=== PATIENT | female | born 1980 | race Caucasian/White ===

== ENCOUNTER 2024-10-30 14:34 | Observation (INO) ==
--- NOTE | 2024-10-30 15:10 | Emergency Department Note ---
HPI - General Adult General Chief complaint: Back Pain/Injury Stated complaint: BACK PAIN Time Seen by Provider: 10/30/24 14:54 Source: patient Mode of arrival: walk-in Limitations: no limitations History of Present Illness HPI narrative: This is a 44 year old female patient that presents to the ER with c/o left flank pain, lower back pain today, cough and congestion for the past few days and not getting any better. Patient states the back pain is worse with movement. Patient denies any chest pain, SOB, back pain, abdominal pain, numbness, tingling, weakness, or loss of bowel or bladder. Patient states her cough has not been productive at all Location: Reports back Radiation: Reports flank (left) Severity: mild Quality: Reports aching Pain Consistency: Reports constant Relieving factors: Reports none Exacerbating factors: Reports movement Associated symptoms: Reports cough Treatments prior to arrival: Reports none Related Data Previous Rx's Medication Instructions Recorded ketorolac 10 mg tablet 10 mg PO Q6H PRN pain #20 tabs 03/16/24 ondansetron 4 mg disintegrating 4 mg PO Q6H PRN nausea and 03/16/24 tablet vomiting #20 tabs Allergies Allergy/AdvReac Type Severity Reaction Status Date / Time orphenadrine (From Norflex) Allergy Unknown Verified 10/30/24 15:19 Review of Systems Status of ROS 10 or more systems reviewed and unremark able except as noted in history and below Constitutional Denies: fever, chills, change in weight, fatigue, malaise, night sweats or change in sleep pattern Eyes Denies: change in vision, blurry vision, blind spots, light sensitivity or eye discomfort Ears, nose, mouth, and throat Denies: throat pain, neck pain, throat swelling, difficulty swallowing, hoarseness, mouth pain, swelling of lips/tongue, dry mouth, ear pain, ear discharge, change in hearing, tinnitus, nasal discharge or nasal congestion Cardiovascular Denies: chest pain, palpitations, edema, swelling of feet/ankles, lightheadedness, shortness of breath with exertion or shortness of breath when lying down Respiratory Reports: cough; Denies: shortness of breath, wheezing, stridor, pain on inspiration, change in phlegm color, coughing up blood or chest congestion Gastrointestinal Denies: abdominal pain, nausea, vomiting, coffee grounds in vomit, heartburn, diarrhea, constipation, bloating or belching Genitourinary Denies: painful urination, urinary frequency, urinary urgency, urinary incontinence, blood in urine, difficulty voiding or decreased urine ouput Musculoskeletal Reports: back pain (lower); Denies: neck pain, extremity pain, extremity swelling, joint pain, limited range of motion or joint swelling Integumentary/Breast Denies: rash, itching, redness, skin pain, skin tenderness, skin swelling, sores, new lesion or changing lesion Neurological Denies: headache, numbness in extremities, weakness in extremities, lack of coordination, dizziness, vertigo or confusion Psychiatric Denies: anxiety, mood swings, panic attacks, change in sleep pattern or hopelessness Endocrine Denies: excessive urination, excessive thirst, fatigue or cold intolerance Hematologic/Lymphatic Denies: easy bruising, easy bleeding or enlarged lymph nodes Allergic/Immunologic Denies: hives, throat swelling, tongue swelling, facial swelling or wheezing PFSH PFSH Medical History (Updated 10/24/24 @ 09:35 by Chance Paz NP) Arthritis Hormone replacement therapy (postmenopausal) Surgical History (Updated 09/19/24 @ 11:17 by Lyudmila Cook RN) History of cervical discectomy Hx of cholecystectomy H/O: hysterectomy Social History Smoking status: current every day smoker Problems where you live: no known problems Feel stressed/tense/nervous/anxious/difficulty sleeping: rather much Life stressor details: Current medical condition Exam Constitutional: normal general appearance and no apparent distress Vital Signs - 24 hr 10/30/24 15:00 10/30/24 15:25 Temperature 98.9 F Pulse Rate 89 Respiratory Rate 16 Blood Pressure 116/65 Pulse Oximetry 98 99 Oxygen Delivery Me thod Room Air HENMT: normocephalic, head/scalp atraumatic, hearing grossly normal bilaterally, external ears normal, nasal mucous membranes normal, external nose normal, oral mucous membranes normal and oropharynx normal Eyes: PERRL, EOMs intact bilaterally, conjunctivae normal, no scleral icterus and no papilledema Neck/C-Spine: visual inspection normal and trachea midline Lymph: no lymphadenopathy noted Chest: inspection of chest normal Respiratory: breath sounds equal bilaterally, normal respiratory effort, clear to auscultation bilaterally, wheezing noted (scattered wheezes), no rales, no retractions, no use of accessory muscles and chest percussion normal Cardiovascular: normal heart rate noted, regular rhythm noted, no gallop, no rub, no murmur, no JVD, no clicks, peripheral pulses 2+ throughout, no bruits noted and no additional abnormal heart sounds Gastrointestinal: abdomen normal to inspection, abdomen soft to palpation, nontender to palpation, nontender to percussion, nondistended, normoactive bowel sounds, no hepatosplenomegaly, no masses, no pulsatile mass, no ascites and no hernia Genitourinary: CVA tenderness noted (left CVA tenderness) Back/Pelvis: spine normal to inspection, no thoracic spine tenderness, no lumbar spine tenderness, thoracic spine ROM normal, lumbar spine ROM normal and no paraspinal muscle tenderness noted soft tissue tenderness lower back Extremities: normal to inspection, normal to palpation, no tenderness, full ROM, no joint enlargement and no deformity Neurology: speech normal, no fasciculations noted and GCS normal Psychiatry: mental status grossly normal, oriented x3, thought process normal, cooperative and affect normal Skin: skin color normal Course Course Hospital Course: 1720: O2 sats 90%RA, O2 2L NC placed. BP stable. No s/s of acute distress noted Vital Signs Vital signs: Vital Signs Temperature 98.9 F 10/30/24 15:00 Pulse Rate 89 10/30/24 15:00 Respiratory Rate 16 10/30/24 15:00 Blood Pressure 116/65 10/30/24 15:00 Pulse Oximetry 98 10/30/24 15:00 Oxygen Delivery Method Room Air 10/30/24 15:00 Temperature 98.9 F 10/30/24 15:00 Pulse Rate 89 10/30/24 15:00 Respiratory Rate 16 10/30/24 15:00 Blood Pressure 116/65 10/30/24 15:00 Pulse Oximetry 99 10/30/24 15:25 Oxygen Delivery Method Room Air 10/30/24 15:00 Medical Decision Making Differential Diagnosis Differential Diagnosis: URI, VIral illness, hypoxia, back strain Medical Records Medical records reviewed: Yes I reviewed the patient's medical records Lab Data Lab results reviewed: Yes I reviewed the patient's lab results Labs: Lab Results 10/30/24 10/30/24 10/30/24 Range/Units 12:11 15:05 15:15 WBC 15.0 H (4.3-9.3) K/uL RBC 4.5 (4.00-5.50) M/uL Hgb 14.0 (12.5-15.8) gm/dL Hct 42.1 (35.9-46.7) % MCV 93.1 (81.0-93.7) fl MCH 31.0 (27.6-32.2) pg MCHC 33.3 (33.1-35.3) g/dl RDW 13.7 (11.4-14.2) % Plt Count 206 (152-353) K/uL MPV 10.1 (6.9-10.8) fl Gran % 84.1 H (47.8-71.3) % Lymph % (Auto) 11.1 L (20.0-43.0) % [place] % (Auto) 4.8 (3.6-9.8) % Eos % (Auto) 0.0 L (0.4-2.8) % Baso % (Auto) 0.0 L (0.1-0.85) Lymph # (Auto) 1.7 (1.1-3.1) [place] # (Auto) 0.7 L (1.1-3.1) Eos # (Auto) 0.0 (0.0-0.2) Baso # (Auto) 0.0 (0.0-0.1) Absolute Gran (auto) 12.6 H (2.3-6.0) Sodium 143 (136-145) mmol/L Potassium 4.5 (3.6-5.2) mmol/L Chloride 106.0 (98-107) mmol/L Carbon Dioxide 25 (21-32) mmol/L Anion Gap 12.0 (4-14) mEq/L BUN 26 H (7-18) mg/dL Creatinine 1.4 H (0.6-1.3) mg/dL Estimated GFR 47.3 (>59.9) Glucose 109 (70-110) mg/dL Lactic Acid (0.27-1.43) mmol/L Calcium 8.3 L (8.5-10.1) mg/dL Total Bilirubin 0.19 (0.0-1.0) mg/dL AST 13 L (15-37) U/L ALT 35 (30-65) U/L Alkaline Phosphatase 61 (50-136) U/L Total Protein 6.7 (6.4-8.2) g/dL Albumin 3.2 L (3.4-5.0) g/dL Urine Color Yellow (STRAW/YELL.) Urine Appearance Clear (CLEAR) Ur Specific [place] 1.015 (1.001-1.035) Urine Protein Negative (NEGATIVE) Urine Glucose (UA) Normal (NORMAL) Urine Ketones Negative (NEGATIVE) Urine Occult Blood 1+ (NEG - TRACE) Urine Nitrite Negative (NEGATIVE) Urine Bilirubin Negative (NEGATIVE) Urine Urobilinogen Normal (NORMAL) Ur Leukocyte Esterase Negative (NEGATIVE) Urine RBC 2 - 5 (0 - 5) Urine WBC 0 - 2 ( 0 - 5) Ur Epithelial Cells Few (Few/HPF) Amorphous Sediment Negative (Negative) Urine Bacteria Negative (Negative) Urine Mucus Negative (Negative) Urine Trichomonas Negative (Negative) Urine Yeast Negative (Negative) Urine Test Negative (Negative) Fluid pH 6.0 (5 - 9) Influenza Type A Ag Negative (Negative) Influenza Type B Ag Negative (Negative) 10/30/24 Range/Units 16:28 WBC (4.3-9.3) K/uL RBC (4.00-5.50) M/uL Hgb (12.5-15.8) gm/dL Hct (35.9-46.7) % MCV (81.0-93.7) fl MCH (27.6-32.2) pg MCHC (33.1-35.3) g/dl RDW (11.4-14.2) % Plt Count (152-353) K/uL MPV (6.9-10.8) fl Gran % (47.8-71.3) % Lymph % (Auto) (20.0-43.0) % [place] % (Auto) (3.6-9.8) % Eos % (Auto) (0.4-2.8) % Baso % (Auto) (0.1-0.85) Lymph # (Auto) (1.1-3.1) [place] # (Auto) (1.1-3.1) Eos # (Auto) (0.0-0.2) Baso # (Auto) (0.0-0.1) Absolute Gran (auto) (2.3-6.0) Sodium (136-145) mmol/L Potassium (3.6-5.2) mmol/L Chloride (98-107) mmol/L Carbon Dioxide (21-32) mmol/L Anion Gap (4-14) mEq/L BUN (7-18) mg/dL Creatinine (0.6-1.3) mg/dL Estimated GFR (>59.9) Glucose (70-110) mg/dL Lactic Acid 1.5 H (0.27-1.43) mmol/L Calcium (8.5-10.1) mg/dL Total Bilirubin (0.0-1.0) mg/dL AST (15-37) U/L ALT (30-65) U/L Alkaline Phosphatase (50-136) U/L Total Protein (6.4-8.2) g/dL Albumin (3.4-5.0) g/dL Urine Color (STRAW/YELL.) Urine Appearance (CLEAR) Ur Specific [place] (1.001-1.035) Urine Protein (NEGATIVE) Urine Glucose (UA) (NORMAL) Urine Ketones (NEGATIVE) Urine Occult Blood (NEG - TRACE) Urine Nitrite (NEGATIVE) Urine Bilirubin (NEGATIVE) Urine Urobilinogen (NORMAL) Ur Leukocyte Esterase (NEGATIVE) Urine RBC (0 - 5) Urine WBC ( 0 - 5) Ur Epithelial Cells (Few/HPF) Amorphous Sediment (Negative) Urine Bacteria (Negative) Urine Mucus (Negative) Urine Trichomonas (Negative) Urine Yeast (Negative) Urine Test (Negative) Fluid pH (5 - 9) Influenza Type A Ag (Negative) Influenza Type B Ag (Negative) Imaging Data CT scan - abdomen: Attestation: I have reviewed the pertinent imaging results. Discharge Plan Discharge Patient Disposition: Admitted As Observation Condition: Stable Clinical Impression: Pneumonia, Back strain, Hypoxia, Acute hypotension, Leukocytosis Time of Disposition: 17:28
[2024-10-30] MEDS: ONDANSETRON HCL/PF 4 MG/2 ML VIAL INJ STA (15:21)
[2024-10-30] MEDS: METHYLPREDNISOLONE SOD SUCC/PF 125 MG/2 ML VIAL IVP ONE (15:21)
[2024-10-30] MEDS: 0.9 % SODIUM CHLORIDE 1000 ML 1,000 ML IV STA (15:21)
[2024-10-30] MEDS ORDERED: IPRATROPIUM/ALBUTEROL SULFATE 3 ML AMPUL.NEB INH ONE (15:22)
[2024-10-30] MEDS ORDERED: BUDESONIDE 0.5 MG/2 ML AMPUL.NEB INH ONE (15:23)
[2024-10-30] MEDS: BUDESONIDE 0.5 MG/2 ML AMPUL.NEB INH ONE (15:25)
[2024-10-30] MEDS: IPRATROPIUM/ALBUTEROL SULFATE 3 ML AMPUL.NEB INH ONE (15:25)
[2024-10-30] MEDS: MORPHINE SULFATE 2 MG/ML CARTRIDGE IV ONE (15:30)
[2024-10-30 15:49] LABS: Granulocytes % - Auto 84.1 % (47.8-71.3); Granulocytes#(Absolute)- Auto 12.6 (2.3-6.0); Hematocrit 42.1 % (35.9-46.7); Mean Corpuscular Volume 93.1 fl (81.0-93.7); Monocytes #(Absolute)- Auto 0.7 (1.1-3.1); Monocytes %(Percent)- Auto 4.8 % (3.6-9.8); Platelet Count 206 K/uL (152-353)
[2024-10-30 15:59] LABS: Potassium 4.5 mmol/L (3.6-5.2)
[2024-10-30 16:08] LABS: Specific Gravity Urine 1.015 (1.001-1.035); Urine Appearance CLEAR (CLEAR); Urine Blood 1+ (NEG - TRACE); Urine Color YELLOW (STRAW/YELL.); Urine Urobilinogen Normal (NORMAL)
[2024-10-30 16:10] LABS: Urine Amorphous Sediment Negative (Negative); Urine Yeast Negative (Negative)
[2024-10-30] MEDS ORDERED: 0.9 % SODIUM CHLORIDE 1000 ML 1,000 ML IV ONE (16:21)
[2024-10-30] MEDS ORDERED: 0.9 % SODIUM CHLORIDE MB+ 50 ML IV ONE (17:52)
[2024-10-30] MEDS ORDERED: CEFTRIAXONE SODIUM 1 GM VIAL ONE (17:52)
[2024-10-30] MEDS: CEFTRIAXONE SODIUM 1 GM in 0.9 % SODIUM CHLORIDE MB+ 50 ML IV STA (17:52)
[2024-10-30] MEDS ORDERED: AZITHROMYCIN 500 MG VIAL ONE (18:12)
[2024-10-30] MEDS ORDERED: 0.9 % SODIUM CHLORIDE 250 ML IV ONE (18:12)
[2024-10-30] MEDS: AZITHROMYCIN 500 MG 500 MG in 0.9 % SODIUM CHLORIDE 250 ML IV ONE (18:29)
[2024-10-30] MEDS ORDERED: KETOROLAC 30 MG/ML INJ VIAL ONE (19:30)
[2024-10-30] MEDS: KETOROLAC 30 MG/ML INJ VIAL INJ ONE (19:32)
[2024-10-31 01:47] VITALS: RESP 18
[2024-10-31] MEDS ORDERED: ACETAMINOPHEN 500 MG TABLET PO PRN (01:58)
[2024-10-31] MEDS ORDERED: bisacodyL 10 MG SUPP.RECT PR PRN (01:58)
[2024-10-31] MEDS ORDERED: KETOROLAC TROMETHAMINE 10 MG TABLET PO PRN (01:58)
[2024-10-31] MEDS ORDERED: MAGNESIUM, ALUMINUM HYDROXIDE 30 ML ORAL.SUSP PO PRN (01:58)
[2024-10-31] MEDS: IPRATROPIUM/ALBUTEROL SULFATE 3 ML AMPUL.NEB INH SCH (03:38)
[2024-10-31] MEDS ORDERED: MORPHINE SULFATE 2 MG/ML CARTRIDGE IV ONE (05:59)
[2024-10-31] MEDS ORDERED: guaiFENesin 100 MG/5 ML LIQUID ONE (05:59)
[2024-10-31] MEDS: guaiFENesin 100 MG/5 ML LIQUID PO PRN (05:59)
[2024-10-31] MEDS: MORPHINE SULFATE 2 MG/ML CARTRIDGE IV PRN (06:00)
[2024-10-31] MEDS ORDERED: ONDANSETRON HCL/PF 4 MG/2 ML VIAL ONE (06:06)
[2024-10-31 06:15] LABS: Potassium 5.2 mmol/L (3.6-5.2)
[2024-10-31] MEDS ORDERED: 0.9 % SODIUM CHLORIDE 1000 ML 1,000 ML IV ONE (06:16)
[2024-10-31] MEDS: ONDANSETRON HCL/PF 4 MG/2 ML VIAL IVP PRN (06:21)
[2024-10-31 06:25] LABS: Basophils%(Percent) Auto 0.1 (0.1-0.85); Granulocytes % - Auto 83.8 % (47.8-71.3); Granulocytes#(Absolute)- Auto 13.7 (2.3-6.0); Hematocrit 38.2 % (35.9-46.7); Mean Corpuscular Volume 93.1 fl (81.0-93.7); Monocytes %(Percent)- Auto 6.2 % (3.6-9.8); Platelet Count 163 K/uL (152-353); White Blood Count 16.3 K/uL (4.3-9.3)
[2024-10-31] MEDS ORDERED: IPRATROPIUM/ALBUTEROL SULFATE 3 ML AMPUL.NEB INH ONE (07:04)
[2024-10-31 07:58] VITALS: TEMP 98.1
[2024-10-31] MEDS ORDERED: 0.9 % SODIUM CHLORIDE MB+ 50 ML IV ONE (08:24)
[2024-10-31] MEDS ORDERED: 0.9 % SODIUM CHLORIDE 250 ML IV ONE (08:24)
[2024-10-31] MEDS ORDERED: CEFTRIAXONE SODIUM 1 GM VIAL ONE (08:25)
[2024-10-31] MEDS ORDERED: METHYLPREDNISOLONE SOD SUCC/PF 40 MG/ML VIAL ONE (08:25)
[2024-10-31] MEDS ORDERED: AZITHROMYCIN 500 MG VIAL ONE (08:25)
[2024-10-31] MEDS: CEFTRIAXONE SODIUM 1 GM in 0.9 % SODIUM CHLORIDE MB+ 50 ML IV SCH (08:27)
[2024-10-31] MEDS: METHYLPREDNISOLONE SOD SUCC/PF 40 MG/ML VIAL INJ SCH (08:27)
[2024-10-31] MEDS: AZITHROMYCIN 500 MG 500 MG in 0.9 % SODIUM CHLORIDE 250 ML IV SCH (08:27)
--- NOTE | 2024-10-31 09:23 | Short Stay Summary ---
H&P: HPI History of Present Illness Chief complaint: cough Narrative: Pt presented to ER from home due to worsening dyspnea with cough. She is an active smoker and had URI symptoms the beginning of the week. It typically turns into bronchitis after a few days. Did have some relief with leftover albuterol at home, but no longer has any. She was getting some symptom relief from OTC meds. All the coughing also worsened her chronic back pain. Review of Systems Status of ROS 10 or more systems reviewed and unremark able except as noted in history and below Constitutional Denies: fever, chills, change in weight, fatigue, malaise, night sweats or change in sleep pattern Eyes Denies: change in vision, blurry vision, blind spots, light sensitivity or eye discomfort Ears, nose, mouth, and throat Denies: throat pain, neck pain, throat swelling, difficulty swallowing, hoarseness, mouth pain, swelling of lips/tongue, dry mouth, ear pain, ear discharge, change in hearing, tinnitus, vertigo, nasal discharge or nasal congestion Cardiovascular Denies: chest pain, palpitations, edema, swelling of feet/ankles, lightheadedness, shortness of breath with exertion or shortness of breath when lying down Respiratory Reports: cough; Denies: shortness of breath, wheezing, stridor, pain on inspiration, change in phlegm color, coughing up blood or chest congestion Gastrointestinal Denies: abdominal pain, nausea, vomiting, coffee grounds in vomit, heartburn, diarrhea, constipation, bloating, belching or difficulty swallowing Genitourinary Denies: painful urination, urinary frequency, urinary urgency, urinary incontinence, blood in urine, difficulty voiding or decreased urine ouput Musculoskeletal Reports: back pain (lower); Denies: neck pain, extremity pain, extremity swelling, joint pain, limited range of motion or joint swelling Integumentary/Breast Denies: rash, itching, redness, skin pain, skin tenderness, skin swelling, sores, new lesion or changing lesion Neurological Denies: headache, numbness in extremities, weakness in extremities, lack of coordination, dizziness, vertigo or confusion Psychiatric Denies: anxiety, mood swings, panic attacks, change in sleep pattern or hopelessness Endocrine Denies: excessive urination, excessive thirst, fatigue or cold intolerance Hematologic/Lymphatic Denies: easy bruising, easy bleeding or enlarged lymph nodes Allergic/Immunologic Denies: hives, throat swelling, tongue swelling, facial swelling or wheezing PFSH PFSH Medical History (Updated 10/31/24 @ 13:06 by Chase rBavo MD) Arthritis Hormone replacement therapy (postmenopausal) Surgical History (Updated 09/19/24 @ 11:17 by Lyudmila Cook RN) History of cervical discectomy Hx of cholecystectomy H/O: hysterectomy Social History Smoking status: current every day smoker Problems where you live: no known problems Highest level of school completed/degree received: College Feel stressed/tense/nervous/anxious/difficulty sleeping: rather much Life stressor details: Current medical condition Do you think of yourself as: lesbian/park/homosexual Gender Identity: female Meds Home Medications and Allergies Home Medications Medication Instructions Recorded Confirmed Type ketorolac 10 mg tablet 10 mg PO Q6H PRN pain #20 tabs 03/16/24 Rx ondansetron 4 mg disintegrating 4 mg PO Q6H PRN nausea and 03/16/24 Rx tablet vomiting #20 tabs albuterol sulfate 90 mcg/actuation 2 puff inhalation QID bronchitis 10/31/24 Rx aerosol inhaler 15 days #8.5 grams benzonatate 200 mg capsule 200 mg PO TID bronchitis #14 caps 10/31/24 Rx dexamethasone 6 mg tablet 6 mg PO DAILY bronchitis #7 tabs 10/31/24 Rx doxycycline hyclate 100 mg capsule 100 mg PO BID bronchitis #14 caps 10/31/24 Rx Allergies Allergy/AdvReac Type Severity Reaction Status Date / Time orphenadrine (From Norflex) Allergy Unknown Verified 10/31/24 01:28 Exam Constitutional: abnormal general appearance (appears ill), distress noted, average body habitus, no limitations and alert Vital Signs - 24 hr 10/30/24 15:00 10/30/24 15:25 10/30/24 15:30 Temperature 98.9 F Pulse Rate 89 72 Pulse Rate [Right] Respiratory Rate 16 17 Blood Pressure 116/65 97/51 Blood Pressure [Ri ght Arm] Pulse Oximetry 98 99 100 Oxygen Delivery Me thod Room Air Room Air 10/30/24 16:00 10/30/24 16:30 10/30/24 17:00 Temperature Pulse Rate 78 81 83 Pulse Rate [Right] Respiratory Rate 18 18 18 Blood Pressure 100/50 84/54 106/63 Blood Pressure [Ri ght Arm] Pulse Oximetry 96 98 90 L Oxygen Delivery Me thod Room Air Room Air Room Air 10/30/24 17:30 10/30/24 18:00 10/30/24 18:30 Temperature Pulse Rate 74 68 74 Pulse Rate [Right] Respiratory Rate 18 18 18 Blood Pressure 113/80 93/51 120/68 Blood Pressure [Ri ght Arm] Pulse Oximetry 96 93 L 94 L Oxygen Delivery Me thod Room Air Room Air Room Air 10/30/24 18:52 10/30/24 18:52 10/30/24 19:00 Temperature 98.9 F Pulse Rate 77 Pulse Rate [Right] 68 Respiratory Rate 16 18 18 Blood Pressure 123/81 Blood Pressure [Ri ght Arm] 118/59 Pulse Oximetry 98 94 L 96 Oxygen Delivery Wy thod Room Air Room Air Room Air 10/30/24 19:30 10/30/24 20:00 10/30/24 20:30 Temperature Pulse Rate 74 75 82 Pulse Rate [Right] Respiratory Rate 19 20 20 Blood Pressure 114/65 118/61 100/55 Blood Pressure [Ri ght Arm] Pulse Oximetry 97 97 95 Oxygen Delivery Wy thod Room Air Room Air Room Air 10/30/24 21:00 10/30/24 21:30 10/30/24 22:00 Temperature Pulse Rate 82 79 74 Pulse Rate [Right] Respiratory Rate 19 19 19 Blood Pressure 102/60 109/46 102/36 Blood Pressure [Ri ght Arm] Pulse Oximetry 95 94 L 95 Oxygen Delivery Wy thod Room Air Room Air Room Air 10/30/24 22:30 10/30/24 23:00 10/30/24 23:30 Temperature Pulse Rate 64 70 88 Pulse Rate [Right] Respiratory Rate 18 18 20 Blood Pressure 98/38 109/68 105/73 Blood Pressure [Ri ght Arm] Pulse Oximetry 95 96 94 L Oxygen Delivery Wy thod Room Air Room Air Room Air 10/31/24 00:00 10/31/24 00:30 10/31/24 01:00 Temperature Pulse Rate 65 67 59 L Pulse Rate [Right] Respiratory Rate 20 20 20 Blood Pressure 107/61 112/70 99/59 Blood Pressure [Ri ght Arm] Pulse Oximetry 94 L 93 L 92 L Oxygen Delivery Wy thod Room Air Room Air Room Air 10/31/24 01:30 10/31/24 02:00 10/31/24 02:30 Temperature Pulse Rate 55 L 61 68 Pulse Rate [Right] Respiratory Rate 20 18 18 Blood Pressure 104/61 102/58 89/59 Blood Pressure [Ri ght Arm] Pulse Oximetry 92 L 92 L [facility] 10/31/24 03:00 10/31/24 03:30 10/31/24 04:00 Temperature Pulse Rate 55 L 56 L 71 Pulse Rate [Right] Respiratory Rate 18 18 18 Blood Pressure 102/53 91/59 104/64 Blood Pressure [Ri ght Arm] Pulse Oximetry 91 L 92 L 96 [facility] Room [facility] Room Air 10/31/24 04:30 10/31/24 05:00 10/31/24 05:30 Temperature Pulse Rate 69 62 60 Pulse Rate [Right] Respiratory Rate 17 18 18 Blood Pressure 109/63 101/59 96/65 Blood Pressure [Ri ght Arm] Pulse Oximetry 93 L 92 L 93 L Oxygen Delivery [facility] Room Air Room Air Room Air 10/31/24 06:00 10/31/24 06:30 10/31/24 07:32 Temperature Pulse Rate 61 60 Pulse Rate [Right] Respiratory Rate 18 18 Blood Pressure 99/62 106/64 Blood Pressure [Ri ght Arm] Pulse Oximetry 94 L 95 98 Oxygen Delivery [facility] Room Air Room Air 10/31/24 07:50 10/31/24 07:56 Temperature 98.1 F Pulse Rate Pulse Rate [Right] 74 Respiratory Rate 18 18 Blood Pressure Blood Pressure [Ri ght Arm] 104/65 Pulse Oximetry 95 Oxygen Delivery [facility] Room Air HENMT: normocephalic, head/scalp atraumatic, hearing grossly normal bilaterally and external ears normal Eyes: PERRL, EOMs intact bilaterally and conjunctivae normal Neck/C-Spine: visual inspection normal, trachea midline and cervical full ROM noted Respiratory: breath sounds equal bilaterally, normal respiratory effort, wheezing noted (expiratory wheezes) and no use of accessory muscles Cardiovascular: normal heart rate noted, regular rhythm noted and no murmur Gastrointestinal: abdomen soft to palpation, nontender to palpation, nondistended and normoactive bowel sounds Back/Pelvis: lumbar spine tenderness noted (very low back, b/l to spine), thoracic spine ROM normal and lumbar spine ROM normal Extremities: normal to inspection, normal to palpation, no tenderness and full ROM Neurology: bar catcher II-XII intact, no focal motor deficit noted, speech normal and no fasciculations noted Psychiatry: mental status grossly normal, oriented x3, thought process normal, cooperative, affect normal, psychomotor activity normal and memory normal Assessment and Plan Assessment and Plan (1) Acute bronchitis: Qualifiers: Bronchitis organism: unspecified organism Qualified Code(s): J20.9 - Acute bronchitis, unspecified Code(s): J20.9 - Acute bronchitis, unspecified (2) Lumbar strain: Qualifiers: Encounter type: initial encounter Qualified Code(s): S39.012A - Strain of muscle, fascia and tendon of lower back, initial encounter Code(s): S39.012A - Strain of muscle, fascia and tendon of lower back, initial encounter Plan Discharge home on abx, steroids, albuterol, and rest. Toradol injection before departure. Results Labs Labs: CBC WBC 16.3 K/uL (4.3-9.3) H 10/31/24 05:40 RBC 4.1 M/uL (4.00-5.50) 10/31/24 05:40 Hgb 12.7 gm/dL (12.5-15.8) 10/31/24 05:40 Hct 38.2 % (35.9-46.7) 10/31/24 05:40 MCV 93.1 fl (81.0-93.7) 10/31/24 05:40 MCH 31.0 pg (27.6-32.2) 10/31/24 05:40 MCHC 33.3 g/dl (33.1-35.3) 10/31/24 05:40 RDW 14.0 % (11.4-14.2) 10/31/24 05:40 Plt Count 163 K/uL (152-353) 10/31/24 05:40 MPV 10.2 fl (6.9-10.8) 10/31/24 05:40 Gran % 83.8 % (47.8-71.3) H 10/31/24 05:40 Lymph % (Auto) 9.9 % (20.0-43.0) L 10/31/24 05:40 [place] % (Auto) 6.2 % (3.6-9.8) 10/31/24 05:40 Eos % (Auto) 0.0 % (0.4-2.8) L 10/31/24 05:40 Baso % (Auto) 0.1 (0.1-0.85) 10/31/24 05:40 Lymph # (Auto) 1.6 (1.1-3.1) 10/31/24 05:40 [place] # (Auto) 1.0 (1.1-3.1) L 10/31/24 05:40 Eos # (Auto) 0.0 (0.0-0.2) 10/31/24 05:40 Baso # (Auto) 0.0 (0.0-0.1) 10/31/24 05:40 Absolute Gran (auto) 13.7 (2.3-6.0) H 10/31/24 05:40 BMP Sodium 141 mmol/L (136-145) 10/31/24 05:40 Potassium 5.2 mmol/L (3.6-5.2) 10/31/24 05:40 Chloride 109.0 mmol/L (98-107) H 10/31/24 05:40 Carbon Dioxide 25 mmol/L (21-32) 10/31/24 05:40 Anion Gap 7.0 mEq/L (4-14) 10/31/24 05:40 BUN 31 mg/dL (7-18) H 10/31/24 05:40 Creatinine 1.2 mg/dL (0.6-1.3) 10/31/24 05:40 Estimated GFR 56.9 (>59.9) 10/31/24 05:40 Glucose 126 mg/dL (70-110) H 10/31/24 05:40 Calcium 7.7 mg/dL (8.5-10.1) L 10/31/24 05:40 Total Bilirubin 0.13 mg/dL (0.0-1.0) 10/31/24 05:40 AST 7 U/L (15-37) L 10/31/24 05:40 ALT 19 U/L (30-65) L 10/31/24 05:40 Alkaline Phosphatase 50 U/L (50-136) 10/31/24 05:40 Total Protein 5.9 g/dL (6.4-8.2) L 10/31/24 05:40 Albumin 2.7 g/dL (3.4-5.0) L 10/31/24 05:40 Liver Function Total Bilirubin 0.13 mg/dL (0.0-1.0) 10/31/24 05:40 AST 7 U/L (15-37) L 10/31/24 05:40 ALT 19 U/L (30-65) L 10/31/24 05:40 Alkaline Phosphatase 50 U/L (50-136) 10/31/24 05:40 Total Protein 5.9 g/dL (6.4-8.2) L 10/31/24 05:40 Albumin 2.7 g/dL (3.4-5.0) L 10/31/24 05:40 Urine Urine Color Yellow (STRAW/YELL.) 10/30/24 15:05 Urine Appearance Clear (CLEAR) 10/30/24 15:05 Ur Specific [place] 1.015 (1.001-1.035) 10/30/24 15:05 Urine Protein Negative (NEGATIVE) 10/30/24 15:05 Urine Glucose (UA) Normal (NORMAL) 10/30/24 15:05 Urine Ketones Negative (NEGATIVE) 10/30/24 15:05 Urine Occult Blood 1+ (NEG - TRACE) 10/30/24 15:05 Urine Nitrite Negative (NEGATIVE) 10/30/24 15:05 Urine Bilirubin Negative (NEGATIVE) 10/30/24 15:05 Urine Urobilinogen Normal (NORMAL) 10/30/24 15:05 Ur Leukocyte Esterase Negative (NEGATIVE) 10/30/24 15:05 Imaging Imaging ordered: Chest x-ray DS: Providers Provider Date of admission: 10/30/24 17:33 Primary care physician: Binta Smiley MD Admitting clinician: Jaclyn Minor Attending physician on admission: Chase Bravo Attending physician on discharge: Chase Bravo Discharging clinician: Chase Bravo Anticipated date of discharge: 10/31/24 DS: Summary Hospital Course Hospital Course: ER hold overnight. Breathing much better and not requiring O2. Requesting to go home, but does report her lower back is still aching. She still has a cough that exacerbates the pain. Time spent discussing smoking cessation with patient: 3 to 10 minutes Status at Discharge Functional status at discharge: independent ambulation Overall status at discharge: patient is progressing back to baseline Time Spent with Patient Time attestation: Total time spent providing and/or coordinating discharge services: Time spent: less than 30 minutes Discharge Plan Discharge Disposition: Home, Self-Care Condition: Stable Discharge Medications: New benzonatate 200 mg capsule 200 mg PO TID Qty: 14 0RF albuterol sulfate 90 mcg/actuation HFA aerosol inhaler 2 puff inhalation QID 15 Days Qty: 8.5 0RF dexamethasone 6 mg tablet 6 mg PO DAILY Qty: 7 0RF doxycycline hyclate 100 mg capsule 100 mg PO BID Qty: 14 0RF Continued ondansetron 4 mg tablet,disintegrating 4 mg PO Q6H PRN (Reason: nausea and vomiting) Qty: 20 0RF ketorolac 10 mg tablet 10 mg PO Q6H PRN (Reason: pain) Qty: 20 0RF Rx Instructions: maximum total duration of 5 days from all oral, intranasal, or parenteral formulations Discharge Orders: Discharge Order (Routine); Ordered 10/31/24 Ordered By: Chase Bravo Activity Detail: Out of work until 11/07/24 Diet: advance to your usual diet Interventions: Discharge Assessment Last Done: 10/31/24 10:25 MED/SURG & ICU Observation Charge Sheet Last Done: 10/31/24 10:25 Patient Instructions: Strep Throat (GEN), Acute Bronchitis (GEN), Low Back Strain (GEN) Forms: Portal/Health Info Access Inst Follow-Ups: Binta Smiley MD [Primary Care Provider] - Discharge Date/Time: 10/31/24 10:42
[2024-10-31] MEDS ORDERED: KETOROLAC 30 MG/ML INJ VIAL ONE (10:23)
[2024-10-31] MEDS: KETOROLAC 30 MG/ML INJ VIAL IVP ONE (10:24)
[2024-10-31 10:45] VITALS: BP 106/69; PULSE 76
== END 2024-10-31 10:42 | disposition home or self-care (01) ==
LOC: ED 14:34 → MS 14:34 → EDHOLD 17:39
PROVIDERS: ADMIT Family Medicine; ATTEND Family Medicine